=== PATIENT | male | born 1995 | race Caucasian/White ===

== ENCOUNTER 2021-01-29 16:38 | Outpatient (CLI) | payer OTHER | END 2021-01-29 16:39 | disposition home or self-care (01) | LOC: CTENTCT 16:38 | PROVIDERS: ATTEND Otolaryngology Plastic Surgery within the Head & Neck | DX: J32.9 Chronic sinusitis, unspecified (principal) | CPT/HCPCS: 70486 ==

== ENCOUNTER 2021-05-25 16:34 | Outpatient (CLI) | payer SELFPAY ==
[2021-05-26 15:26] LABS: SARS-CoV-2 PCR by NAA Not Detected (NotDetected)
== END 2021-05-25 16:35 | disposition home or self-care (01) ==
LOC: LABBT 16:34
PROVIDERS: ATTEND Otolaryngology Plastic Surgery within the Head & Neck
DX: Z01.812 Encounter for preprocedural laboratory examination (principal); J32.9 Chronic sinusitis, unspecified; J32.3 Chronic sphenoidal sinusitis; J32.2 Chronic ethmoidal sinusitis; J32.0 Chronic maxillary sinusitis; J32.1 Chronic frontal sinusitis; J33.9 Nasal polyp, unspecified; J34.2 Deviated nasal septum; J34.3 Hypertrophy of nasal turbinates; J30.9 Allergic rhinitis, unspecified; Z20.822 Contact with and (suspected) exposure to COVID-19
CPT/HCPCS: U0003; U0005

== ENCOUNTER 2021-05-30 06:30 | Day surgery (SDC) | payer OTHER, SELFPAY ==
[2021-05-28 16:12] VITALS: BMI 24.4
[2021-05-30] MEDS ORDERED: AFRIN NASAL MIST 15 ML BOT ONE ×2 (07:00→07:27)
[2021-05-30] MEDS ORDERED: Bacitracin Zinc Ointment 30 gm TUBE ONE (07:00)
[2021-05-30] MEDS ORDERED: Lidocaine 1% w/Epinephrine 1:100K 20 ML VIAL ONE (07:00)
[2021-05-30] MEDS ORDERED: Fentanyl 100 MCG/2 ML VIAL ONE (08:07)
[2021-05-30] MEDS ORDERED: Lidocaine 1% PF 5 ML VIAL ONE (08:20)
[2021-05-30] MEDS ORDERED: Ondansetron PF 4 MG/2 ML Vial ONE (08:20)
[2021-05-30] MEDS ORDERED: Glycopyrrolate 0.2 MG/ML 5 ML SYRINGE ONE (08:20)
[2021-05-30] MEDS ORDERED: PROPOFOL 200 MG/20 ML VIAL ONE (08:20)
[2021-05-30] MEDS ORDERED: Rocuronium Bromide 10 MG/ML (10ML VIAL) ONE (08:20)
[2021-05-30] MEDS ORDERED: Dexamethasone 20 MG/5 ML VIAL ONE (08:20)
[2021-05-30] MEDS ORDERED: Morphine 2 MG/ML VIAL ONE (10:36)
[2021-05-30] MEDS ORDERED: HYDROcodone/Acetaminophen 5/325 mg Tablet ONE (10:58)
== END 2021-05-30 11:35 | disposition home or self-care (01) ==
LOC: SDC 06:30
PROVIDERS: ATTEND Otolaryngology Plastic Surgery within the Head & Neck
PROC: 09SM0ZZ Reposition Nasal Septum, Open Approach (ICD-10-PCS; principal; 2021-05-30)
PROC: 09BW8ZZ Excision of Right Sphenoid Sinus, Via Natural or Artificial Opening Endoscopic (ICD-10-PCS; principal; 2021-05-30)
PROC: 8E09XBZ Computer Assisted Procedure of Head and Neck Region (ICD-10-PCS; principal; 2021-05-30)
PROC: 09TL0ZZ Resection of Nasal Turbinate, Open Approach (ICD-10-PCS; principal; 2021-05-30)
PROC: 09TU8ZZ Resection of Right Ethmoid Sinus, Via Natural or Artificial Opening Endoscopic (ICD-10-PCS; principal; 2021-05-30)
PROC: 09TV8ZZ Resection of Left Ethmoid Sinus, Via Natural or Artificial Opening Endoscopic (ICD-10-PCS; principal; 2021-05-30)
PROC: 09BS8ZZ Excision of Right Frontal Sinus, Via Natural or Artificial Opening Endoscopic (ICD-10-PCS; principal; 2021-05-30)
PROC: 09BX8ZZ Excision of Left Sphenoid Sinus, Via Natural or Artificial Opening Endoscopic (ICD-10-PCS; principal; 2021-05-30)
PROC: 09BT8ZZ Excision of Left Frontal Sinus, Via Natural or Artificial Opening Endoscopic (ICD-10-PCS; principal; 2021-05-30)
PROC: 09BR8ZZ Excision of Left Maxillary Sinus, Via Natural or Artificial Opening Endoscopic (ICD-10-PCS; principal; 2021-05-30)
PROC: 09BQ8ZZ Excision of Right Maxillary Sinus, Via Natural or Artificial Opening Endoscopic (ICD-10-PCS; principal; 2021-05-30)
DX: J33.8 Other polyp of sinus (principal); J34.89 Other specified disorders of nose and nasal sinuses; J34.2 Deviated nasal septum; J34.3 Hypertrophy of nasal turbinates; J30.89 Other allergic rhinitis; J32.4 Chronic pansinusitis; Z79.899 Other long term (current) drug therapy
CPT/HCPCS: C2625; J1100; J2270; J2405; J2704; J3010